=== PATIENT | female | born 1940 | race African-American/Black ===

== ENCOUNTER → 2021-01-26 | Day surgery (SDC) | payer MEDICARE, OTHER ==
[~2021-01-26] VITALS: Ht 154.9 cm; Wt 61.2 kg
[~2021-01-26] MED LIST: LISINOPRIL-HCT1 EAC1 PO; MECLIZINE HCL25 MG PO; MOBIC15 MG PO; OXYBUTYNIN CHLOR5 M1 PO; PERCOCET 5-3251 EACH PO; VOLTAREN **OUT50 MG PO
[2021-01-26 10:13] LABS: HCT 37.5 % (37.0-47.0); HGB 11.9 g/dl (12.5-16.0); MCH 28.9 pg (25.0-31.0); MCHC 31.7 g/dL (32.0-36.0); MPV 10.8 fL (6.0-9.5); RBC 4.12 M/uL (4.20-5.40); RDW 13.7 % (11.5-14.0); WBC 13.7 K/uL (4.0-10.5)
[2021-01-26 10:40] LABS: ALBUMIN 4.1 g/dL (3.4-5.0); BILIRUBIN - TOTAL 0.6 mg/dL (0.2-1.0); BUN/CREAT RATIO (CALC) 17.6 RATIO; CREATININE 1.53 mg/dL (0.51-0.95); GLOBULIN (CALCULATION) 3.8 g/dL; POTASSIUM 4.7 mmol/L (3.5-5.1); TOTAL PROTEIN 7.9 g/dL (6.4-8.2)
== END | disposition home or self-care (01) ==
LOC: FAS 09:20
PROVIDERS: Orthopaedic Surgery
DX: M67.432 Ganglion, left wrist (principal); M17.12 Unilateral primary osteoarthritis, left knee; I10 Essential (primary) hypertension
CPT/HCPCS: 36415; 80053; J1100; J1885; J2250; J2405; J2704; J3010; J7120

== ENCOUNTER 2021-11-01 10:21 | Emergency (ER) | payer MEDICARE, OTHER ==
[2021-11-01 12:26] LABS: BASOPHIL 0.6 % (0-2); EOSINOPHIL 0.3 % (0-7); HCT 36.5 % (37.0-47.0); HGB 11.6 g/dl (12.5-16.0); LYMPHOCYTE 24.1 % (15-48); MCHC 31.8 g/dL (32.0-36.0); MCV 91.3 fL (78.0-100.0); MONOCYTE 6.6 % (0-12); MPV 10.2 fL (6.0-9.5); NEUTROPHIL 66.5 % (41-80); NRBC 0; PLT 211 K/uL (150-400); RDW 13.7 % (11.5-14.0); WBC 12.3 K/uL (4.0-10.5)
[2021-11-01 12:55] LABS: ALBUMIN 3.8 g/dL (3.4-5.0); ALKALINE PHOSHATASE 71 U/L (46-116); ALT 28 U/L (14-59); AST 19 U/L (15-37); BILIRUBIN - TOTAL 0.4 mg/dL (0.2-1.0); BUN 27 mg/dL (7-18); BUN/CREAT RATIO (CALC) 17.3 RATIO; CHLORIDE 107 mmol/L (98-107); CO2 (BICARBONATE) 26 mmol/L (21-32); CREATININE 1.56 mg/dL (0.51-0.95); GLOBULIN (CALCULATION) 3.5 g/dL; GLUCOSE 90 mg/dL (74-106); POTASSIUM 3.9 mmol/L (3.5-5.1); TOTAL PROTEIN 7.3 g/dL (6.4-8.2)
[2021-11-01 12:58] LABS: C-REACTIVE PROTEIN <0.20 mg/dL (<=0.90)
[2021-11-01] MEDS ORDERED: MEDROL 4MG DOSEP4 MG PO (13:38)
[2021-11-01] MEDS ORDERED: NORCO 5-325 TA1 EACH PO (13:38)
== END 2021-11-01 14:05 | disposition home or self-care (01) ==
LOC: FER 10:21
PROVIDERS: Emergency Medicine
DX: M47.26 Other spondylosis with radiculopathy, lumbar region (principal); I10 Essential (primary) hypertension; Z88.0 Allergy status to penicillin
CPT/HCPCS: 36415; 72131; 80053; 85025; 86140; J1170; J2405

== ENCOUNTER 2021-11-23 10:19 | Emergency (ER) | payer MEDICARE, OTHER ==
[~2021-11-23 10:19] MED LIST changes: +MEDROL 4MG DOSEP4 MG PO; +NORCO 5-325 TA1 EACH PO
[2021-11-23 13:31] LABS: BILIRUBIN NEGATIVE (NEGATIVE); BLOOD TRACE-INTACT Ery/uL (NEGATIVE); CLARITY CLEAR (CLEAR); COLOR YELLOW (YELLOW); GLUCOSE (U) NORMAL (NORMAL); LEUKOCYTES 1+ Leu/uL (NEGATIVE); NITRITE NEGATIVE (NEGATIVE); PROTEIN NEGATIVE (NEGATIVE); SPECIFIC GRAVITY 1.015 (1.001-1.030); UROBILINOGEN 0.2 mg/dL (0.2-1.0)
[2021-11-23 13:42] LABS: BACTERIA TRACE; URINARY RBC RARE
[2021-11-23] MEDS ORDERED: LIDODERM PATCH 51 EA TOP (14:17)
[2021-11-23] MEDS ORDERED: PREDNISONE50 MG PO (14:17)
== END 2021-11-23 14:40 | disposition home or self-care (01) ==
LOC: FER 10:19
PROVIDERS: Physician Assistant Medical
DX: M54.16 Radiculopathy, lumbar region (principal); I10 Essential (primary) hypertension; Z79.899 Other long term (current) drug therapy
CPT/HCPCS: 81001; 99283; J7512

== ENCOUNTER 2022-03-23 12:22 | Emergency (ER) | payer MEDICARE, OTHER ==
[~2022-03-23 12:22] MED LIST changes: +LIDODERM PATCH 51 EA TOP; +PREDNISONE50 MG PO
[2022-03-23 15:41] LABS: BILIRUBIN NEGATIVE (NEGATIVE); BLOOD 1+ Ery/uL (NEGATIVE); CLARITY CLEAR (CLEAR); COLOR YELLOW (YELLOW); GLUCOSE (U) NORMAL (NORMAL); LEUKOCYTES NEGATIVE Leu/uL (NEGATIVE); NITRITE NEGATIVE (NEGATIVE); PROTEIN NEGATIVE (NEGATIVE); SPECIFIC GRAVITY 1.025 (1.001-1.030); UROBILINOGEN 0.2 mg/dL (0.2-1.0)
[2022-03-23 16:04] LABS: BACTERIA TRACE; SQUAMOUS EPITHELIAL CELLS RARE
[2022-03-23] MEDS ORDERED: NORCO 5-325 TA1 EACH PO (16:15)
== END 2022-03-23 16:49 | disposition home or self-care (01) ==
LOC: FER 12:22
PROVIDERS: Emergency Medicine
DX: M51.36 Other intervertebral disc degeneration, lumbar region (principal); I10 Essential (primary) hypertension; Z88.0 Allergy status to penicillin
CPT/HCPCS: 72131; 81001; 87088